=== PATIENT | male | born 1945 | race Asian ===

== ENCOUNTER 2019-02-02 20:31 | Emergency (ER) | payer OTHER ==
[~2019-02-02] VITALS: Ht 175.3 cm; Wt 95.3 kg
[2019-02-02 20:31] VITALS: BP 166/99; TEMP 98.4
[2019-02-02 21:01] LABS: PLATELET COUNT 233 K/uL (142-355)
[2019-02-02 21:10] LABS: POTASSIUM 3.7 mmol/L (3.6-5.2)
[2019-02-02] MEDS ORDERED: MULTIVITAMI1 PO (23:08)
[2019-02-02] MEDS ORDERED: BUSPIRONE5 MG PO (23:09)
[2019-02-02] MEDS ORDERED: METOPROLOL25 M1 PO (23:10)
[2019-02-02] MEDS ORDERED: CYCL10TA35 PO (23:10)
[2019-02-02] MEDS ORDERED: PERPHENAZINE4 MG PO (23:11)
[2019-02-02] MEDS ORDERED: REMERON SOLTAB15 MG PO (23:11)
[2019-02-02] MEDS ORDERED: FAMOTIDINE40 MG PO (23:11)
[2019-02-02] MEDS ORDERED: TRAZ50TA36 PO (23:12)
[2019-02-02] MEDS ORDERED: NITR0.4S2 SL (23:13)
[2019-02-02] MEDS ORDERED: TRAMADOL HYDROC50 MG PO (23:13)
[2019-02-02] MEDS ORDERED: HYDROCODONE BIT1 TA2 PO (23:14)
[2019-02-02] MEDS ORDERED: OXCARBAZEPIN150 MG PO (23:14)
[2019-02-16] MEDS ORDERED: BUSP5TAB2 PO (21:16)
[2019-02-16] MEDS ORDERED: RISP1TAB PO (21:16)
[2019-02-16] MEDS ORDERED: ASEN5SUB2 PO (21:16)
[2019-02-16] MEDS ORDERED: OXCARBAZEPIN300 MG PO (21:16)
[2019-02-16] MEDS ORDERED: MIRTAZAPINE7.5 MG PO (21:18)
[2019-03-11] MEDS ORDERED: ASEN5SUB2 SL (09:02)
[2019-03-11] MEDS ORDERED: OXCARBAZEPIN300 MG PO (09:03)
[2019-03-11] MEDS ORDERED: RISP1TAB PO (09:04)
[2019-03-11] MEDS ORDERED: DONE5TAB PO (09:06)
[2019-03-11] MEDS ORDERED: MEMA5TAB PO (09:06)
[2019-03-11] MEDS ORDERED: BUSP15TAB2 PO (09:07)
[2019-03-11] MEDS ORDERED: IPRATROPIUM/ INH (09:07)
== END 2019-02-02 22:25 | disposition other institution (70) ==
LOC: ED 20:31
PROVIDERS: Student in an Organized Health Care Education/Training Program
DX: Z00.8 Encounter for other general examination (principal); F91.8 Other conduct disorders; I10 Essential (primary) hypertension
CPT/HCPCS: 36415; 80053; 80156; 81000; 85027; 93005; 99285

== ENCOUNTER 2019-02-21 16:20 | Emergency (ER) | payer OTHER ==
[~2019-02-21] VITALS: Ht 175.3 cm; Wt 83.9 kg
[2019-02-21 16:20] VITALS: TEMP 97.3
[~2019-02-21 16:20] MED LIST: ASEN5SUB2 PO; BUSP5TAB2 PO; BUSPIRONE5 MG PO; CYCL10TA35 PO; FAMOTIDINE40 MG PO; HYDROCODONE BIT1 TA2 PO; METOPROLOL25 M1 PO; MIRTAZAPINE7.5 MG PO; MULTIVITAMI1 PO; NITR0.4S2 SL; OXCARBAZEPIN150 MG PO; OXCARBAZEPIN300 MG PO; PERPHENAZINE4 MG PO; REMERON SOLTAB15 MG PO; RISP1TAB PO; TRAMADOL HYDROC50 MG PO; TRAZ50TA36 PO
[2019-02-21 16:38] LABS: PLATELET COUNT 197 K/uL (142-355)
[2019-02-21 16:53] LABS: POTASSIUM 3.8 mmol/L (3.6-5.2)
[2019-02-21 17:05] VITALS: BP 110/73
[2019-03-11] MEDS ORDERED: ASEN5SUB2 SL (09:02)
[2019-03-11] MEDS ORDERED: OXCARBAZEPIN300 MG PO (09:03)
[2019-03-11] MEDS ORDERED: RISP1TAB PO (09:04)
[2019-03-11] MEDS ORDERED: DONE5TAB PO (09:06)
[2019-03-11] MEDS ORDERED: MEMA5TAB PO (09:06)
[2019-03-11] MEDS ORDERED: IPRATROPIUM/ INH (09:07)
[2019-03-11] MEDS ORDERED: BUSP15TAB2 PO (09:07)
== END 2019-02-21 17:05 | disposition other institution (70) ==
LOC: ED 16:20
PROVIDERS: Emergency Medicine
DX: R46.89 Other symptoms and signs involving appearance and behavior (principal); F20.89 Other schizophrenia; R00.0 Tachycardia, unspecified; I45.19 Other right bundle-branch block; Z04.6 Encounter for general psychiatric examination, requested by authority
CPT/HCPCS: 80053; 85027; 93005; 99283; 99285